=== PATIENT | female | born 1970 | race Caucasian/White ===

== ENCOUNTER → 2017-04-12 | Outpatient (CLI) | payer BC ==
--- NOTE | 2017-04-12 22:51 | MR ---
EXAMINATION TYPE: MR kidney wo/w con DATE OF EXAM: 04/12/2017 COMPARISON: Prior MRI kidney September 11, 2014. HISTORY: Kidney lesion per order. Liver lesion per patient. CONTRAST: Standard multiplanar, multisequence MRI departmental protocol utilizing 7.5 mL intravenous Gadavist g adolinium contrast. Imaging is performed on the abdomen focusing on bilateral kidneys. FINDINGS: Current exam is suboptimal as there is more respiratory motion artifact noted. KIDNEYS: There is stable cystic lesion midpole of the left kidney seen best on postcontrast images po steriorly measuring roughly 1.2 x 0.9 cm image 310 series 801 at is T1 hypointensity with T2 hyperint ensity that shows thin enhancing septa felt to reflect a Bosniak type II cyst. There is tiny nonenhan cing T2 punctate focus upper pole level left kidney coronal image 29 series 301 felt to reflect cyst. Right kidney shows 5 to 6 well-circumscribed round to oval T1 hypointense and T2 hyperintense nonenha ncing lesions felt to reflect simple cysts, largest as upper pole of right kidney measuring 1.6 x 1.6 cm axial image 23 series 601. There is no suspicious solid or cystic mass identified bilaterally. No hydronephrosis is evident bila terally. OTHER: Lung bases are grossly clear. The spleen, pancreas, and both adrenal glands are normal in size . There is no suspicious small and large bowel dilatation. There is no concerning abdominal fluid col lection. There is no suspicious abdominal adenopathy. Visualized osseous structures are intact. IMPRESSION: Stable simple appearing cysts right kidney. Stable cystic lesion centrally left kidney favoring Bosni ak type II cyst. No new suspicious solid or cystic renal masses are identified.
== END | disposition home or self-care (01) ==
LOC: RADMRIMAIN 15:10
PROVIDERS: ATTEND Internal Medicine
DX: N28.1 Cyst of kidney, acquired (principal)
CPT/HCPCS: 74183; A9581

== ENCOUNTER → 2018-05-01 | Outpatient (CLI) | payer BC ==
[2018-05-01 16:48] LABS: Blood Urea Nitrogen 12 mg/dL (7-17)
--- NOTE | 2018-05-02 04:22 | CT ---
EXAMINATION TYPE: CT urogram wo/w con DATE OF EXAM: 05/01/2018 COMPARISON: MRI 04/12/2017 HISTORY: 47-year-old female with gross Hematuria TECHNIQUE: Contiguous axial scanning of the abdomen and pelvis performed without and with IV Contrast , patient injected with 100 mL of Isovue 300. Delayed images through the kidneys and bladder were obt ained. Coronal/sagittal reconstructions performed. CT DLP: 1398.7 mGycm Automated exposure control for dose reduction was used. FINDINGS: Heart normal size without pericardial effusion. Tiny hiatal hernia. Mild dependent atelectasis in the lung bases. No pleural effusion. No focal liver lesion or biliary ductal dilatation. Portal venous system is patent. Adrenal glands, spleen, and pancreas appear within normal limits. 1.8 cm benign cyst anterior right kidney. There are approximately 3 additional hypodense lesions thou gh these measure less than 1 cm and are too small for accurate CT characterization. No hydronephrosis on the right. The left kidney, there is a nonobstructive 4 mm left midpole renal calculus and adjacent subcentimete r hypodensity, likely cyst. No suspicious enhancing renal lesions. There is symmetric uptake and excretion of contrast from both kidneys without hydronephrosis. No suspicious filling defect identified within the renal collecting systems or along the course of ei ther ureter. No dilated small bowel, free fluid, or free air. No mesenteric or retroperitoneal lymphadenopathy. Normal appendix. Mild to moderate overall stone burden. No pericolonic inflammatory change. There is some mural-based irregularity to the intravesicular enhancement of the right inferior bladde r floor which does not persist on the delayed bladder filling images suspected mixing artifact. Howev er, there is focal soft tissue nodularity at the right ureteral orifice measuring 1.2 cm, reference a xial image 71 and sagittal image 81 of series 17 and series 22. Otherwise, the posterior three fourth s of the bladder is opacified on the delayed images and no other mural-based abnormality is visualize d. The anterior corner of the bladder is not opacified and the mucosa is not ideally assessed here th ough no obvious abnormality is seen. Uterus surgically absent. Neither ovary clearly seen. Mild multilevel degenerative disc disease. Facet arthropathy lower lumbar spine. Focal sclerotic endp late changes anteriorly at T11-T12. IMPRESSION: 1. APPROXIMATELY 3 SUBCENTIMETER HYPODENSE LESIONS IN THE RIGHT KIDNEY AND ONE IN THE LEFT KIDNEY. TH MICHELLE ARE TOO SMALL FOR ACCURATE CT CHARACTERIZATION AND PROBABLY REPRESENT CYSTS. A BENIGN 1.8 CM RIGH T RENAL CYST IS PRESENT. NO SUSPICIOUS ENHANCING RENAL LESION SEEN. 2. NONOBSTRUCTIVE 4 MM LEFT RENAL CALCULUS. 3. 1 CM MURAL BASED NODULARITY WITHIN THE BLADDER AT THE LEVEL OF THE RIGHT URETERAL ORIFICE. THIS CO ULD REPRESENT SOME SWELLING SUCH IN THE SETTING OF A RECENTLY PASSED STONE. UNDERLYING UROTHELIAL LESION NOT EXCLUDED. CORRELATE WITH URINE CYTOLOGY AND DIRECT VISUALIZATION INDICATED. 4. OTHERWISE, NO SUSPICIOUS FILLING DEFECT IN THE RENAL COLLECTING SYSTEMS OR ALONG THE COURSE OF EIT HER URETER. THE MAJORITY OF THE BLADDER IS OPACIFIED ON THE DELAYED IMAGES AND SHOWS NO ADDITIONAL ONEAL SPICIOUS FILLING DEFECT.
== END | disposition home or self-care (01) ==
LOC: RADCTMAIN 16:16
PROVIDERS: ATTEND Urology
DX: N20.0 Calculus of kidney (principal); N28.9 Disorder of kidney and ureter, unspecified; N32.9 Bladder disorder, unspecified; Z88.0 Allergy status to penicillin; Z88.8 Allergy status to other drugs, medicaments and biological substances
CPT/HCPCS: 82565; 84520; 74178; 36415; 74400; Q9967

== ENCOUNTER → 2019-08-01 | Outpatient (CLI) | payer BC ==
--- NOTE | 2019-08-01 12:15 | XR ---
EXAMINATION TYPE: XR wrist complete LT DATE OF EXAM: 08/01/2019 CLINICAL HISTORY: pain TECHNIQUE: Frontal, lateral and oblique images of the left wrist are obtained. COMPARISON: None. FINDINGS: There is no acute fracture/dislocation evident. The joint spaces appear within normal ford its. The overlying soft tissue appears unremarkable. IMPRESSION: There is no acute fracture or dislocation seen. ICD 10 NO FRACTURE, INITIAL EVALUATION
== END | disposition home or self-care (01) ==
LOC: RADXRYALE 11:53
PROVIDERS: ATTEND Internal Medicine
DX: M25.532 Pain in left wrist (principal)

== ENCOUNTER → 2022-03-23 | Outpatient (CLI) | payer BC ==
--- NOTE | 2022-03-23 15:46 | CT ---
EXAMINATION TYPE: CT urogram wo/w con CT DLP: 1915 mGycm, Automated exposure control for dose reduction was used. DATE OF EXAM: 03/23/2022 3:22 PM COMPARISON: CT urogram 05/01/2018. CLINICAL INDICATION:Female, 51 years old with history of C67.9 MALIGNANT NEOPLASM OF BLADDER, UNSPECI FIED; TECHNIQUE: Urogram of the abdomen and pelvis using before and after the uneventful administration of 100 mL of I sovue-370 intravenously. Coronal and sagittal reformats were performed. One or more CT dose reduction strategies were utilized during this examination. 2D and 3D reconstructions are performed to assist visualization of the urinary tract on a separate workstation. FINDINGS: GENITOURINARY: RIGHT KIDNEY AND URETER: No calculi. No hydronephrosis or hydroureter. Increased size of right mid ki dney 3.3 cm simple cyst. Additional stable right superior pole 3 subcentimeter hypoattenuating lesion s which are too small to characterize but likely represent cysts. No enhancing lesion identified. No urothelial lesions: no filling defect, dilation, stricture or wall thickening. LEFT KIDNEY AND URETER: Nonobstructive 3 mL calculus in the superior pole. Left superior pole subcent imeter hypodense lesion which is too small characterize but likely represents a cyst. No enhancing le meem identified. No urothelial lesions: no filling defect, dilation, stricture or wall thickening. URINARY BLADDER: Moderately well distended. Normal, no calculi, mass or other lesions. Previously see n nodularity within the bladder base on the right is not visualized on today's exam. REPRODUCTIVE: Suggested Bartholin's gland cyst on the right posterior lateral wall of the vagina radha uring up to 1.3 cm (series 7, image 77). ABDOMEN LIVER: Unremarkable. GALLBLADDER AND BILE DUCTS: Contracted. No biliary duct dilatation. PANCREAS: Unremarkable. SPLEEN: Unremarkable. ADRENAL GLANDS: Unremarkable. STOMACH AND BOWEL: Distal colonic diverticulosis without evidence for acute diverticulitis. The appen delonte is within normal limits. No evidence of bowel obstruction. PERITONEUM: No evidence of pneumoperitoneum, free fluid, or adenopathy. VASCULATURE: No aortic aneurysm. MUSCULOSKELETAL: No acute osseous abnormalities. SOFT TISSUE/ABDOMINAL WALL: Unremarkable. LOWER CHEST: No significant findings. IMPRESSION: 1. Mildly increase in size of right mid kidney 3.3 cm cyst. Additional stable subcentimeter hypodense foci within the right kidney and left kidney which are too small to characterize but favored to repr esent cysts. 2. Previously seen mural based nodule within the bladder base on the right is not visualized on today 's exam. No new suspicious lesions within the bladder or ureters. 3. Nonobstructive left renal calculus. 4. Cystic 1.3 cm lesion in the right posterior lateral wall of the vagina favored to represent a Zachary holin gland cyst. Consider direct physician.
== END | disposition home or self-care (01) ==
LOC: RADCTMAIN 13:52
PROVIDERS: ATTEND Urology
DX: C67.9 Malignant neoplasm of bladder, unspecified (principal); N20.0 Calculus of kidney; N89.8 Other specified noninflammatory disorders of vagina; N28.1 Cyst of kidney, acquired
CPT/HCPCS: 74178; 74400; Q9967

== ENCOUNTER 2023-02-08 10:55 | Day surgery (SDC) | payer BC ==
[~2023-02-08 10:55] MED LIST: LACTATED RINGERS 1,000 ML IV SCH
[2023-02-08 11:53] VITALS: RESP 16; TEMP 98.1
[2023-02-08] MEDS ORDERED: PROPOFOL 10 MG/ML 20 ML VIAL IV ONE (12:39)
--- NOTE | 2023-02-08 12:55 | P.PCN ---
Date of Procedure: 02/08/23 Procedure(s) Performed: BRIEF HISTORY: Patient is a 52-year-old pleasant female scheduled for an elective colonoscopy as a part of evaluation of intermittent rectal bleeding for the last 1 month duration. PROCEDURE PERFORMED: Colonoscopy with snare polypectomy. PREOPERATIVE DIAGNOSIS: Intermittent rectal bleeding. IV sedation per Anesthesia. PROCEDURE: After informed consent was obtained, the patient, was brought into the endoscopy unit. IV sedation was administered by Anesthesia under continuous monitoring. Digital rectal examination was normal. Initially the Olympus CF-160 flexible video colonoscope was then inserted in the rectum, gradually advanced into the cecum without any difficulty. Careful examination was performed as the scope was gradually being withdrawn. Ileocecal valve and the appendiceal orifice were visualized and appeared normal. Prep was excellent. Mucosa of the cecum, ascending colon, transverse colon, descending colon, appeared normal. In the distal sigmoid colon there was a 1.5 cm pegylated polyp at 25 cm from the anal was there was removed by snare polypectomy. Scattered sigmoid diverticulosis seen. Rest of the sigmoid colon, and rectum appeared normal. Retroflexion was performed in the rectum and small internal hemorrhoids were seen. The patient tolerated the procedure well. IMPRESSION: 1.5 cm pedunculated distal sigmoid: Polyp status post polypectomy Scattered similar diverticulosis Small internal hemorrhoids RECOMMENDATIONS: Findings of this examination were discussed with the patient as well as her family. She was advised to follow with the biopsy results. If the biopsies adenoma she can have a repeat colonoscopy in 3 years.
[2023-02-08 13:27] VITALS: BP 168/68; PULSE 79
== END 2023-02-08 13:37 | disposition home or self-care (01) ==
LOC: ORWHC2ENDO 10:55
PROVIDERS: ATTEND Internal Medicine Gastroenterology
DX: D12.5 Benign neoplasm of sigmoid colon (principal); K57.30 Diverticulosis of large intestine without perforation or abscess without bleeding; K64.8 Other hemorrhoids; E03.9 Hypothyroidism, unspecified; Z98.890 Other specified postprocedural states; Z79.899 Other long term (current) drug therapy
CPT/HCPCS: 88305; 45385; J2704

== ENCOUNTER → 2023-04-04 | Outpatient (CLI) | payer BC ==
--- NOTE | 2023-04-04 16:46 | CT ---
EXAMINATION TYPE: CT urogram wo/w con DATE OF EXAM: 04/04/2023 COMPARISON: 03/23/2022 INDICATION: F/U bladder CA DLP: 1960.6 mGycm, Automated exposure control for dose reduction was used. CONTRAST: 100 mL of Isovue 370. Study performed TECHNIQUE: Axial images were obtained from above the diaphragm to the pubic rami in the axial plane a t 3 mm thick sections. Reconstructed images are reviewed on the computer in the coronal plane. Thre e-D reconstructed images performed by the technologist through the renal collecting systems are revie wed. FINDINGS: Limited CT sections are obtained the lung bases. The lung bases are clear. CT ABDOMEN: Liver spleen pancreas gallbladder and adrenal glands are unremarkable. Right renal cyst is present me asuring 3.4 cm. Abdominal aorta inferior vena cava are normal. Loops of bowel without contrast are no rmal. Appendix is unremarkable. Diverticular changes are within the sigmoid colon. Uterus and ovaries are not identified. Pre and postcontrast imaging is performed through the kidneys. There is a nonobstructing cortical kerwin al cyst in the superior left kidney measuring 0.3 cm. Additional cortical renal cysts are present on delayed images. Urinary bladder with contrast appears unremarkable. No obvious filling defects are identified. The re nal collecting systems likewise appear unremarkable. Ureters follow a normal caliber course and conto ur to the urinary bladder. Three-D reconstructed images are reviewed. Renal calyces infundibula and renal pelves appear normal. Ureters appear unremarkable. No obvious urinary bladder defect is evident. IMPRESSION: 1. No suspicious renal collecting system abnormality of renal calyces infundibula and renal pelves o r ureters is evident. 2. Urinary bladder as visualized appears unremarkable. Patient's urinary bladder cancer not identifie d during this exam.
== END | disposition home or self-care (01) ==
LOC: RADCTMAIN 14:26
PROVIDERS: ATTEND Urology
DX: C67.9 Malignant neoplasm of bladder, unspecified (principal)
CPT/HCPCS: 74178; 74400; Q9967